=== PATIENT | female | born 1990 | race Caucasian/White ===

== ENCOUNTER 2016-07-31 13:18 | Emergency (ER) | payer BC ==
[~2016-07-31] VITALS: Ht 165.1 cm; Wt 54.4 kg
[~2016-07-31 13:18] MED LIST: LORA-741 PO; SERT-234 PO
[2016-07-31 13:23] VITALS: TEMP 36.8; Ht 165.1 cm; Wt 54.4 kg
[2016-07-31] MEDS ORDERED: SODIUM CHLORIDE 0.9% 1000ML 1,000 ML IV STA (14:10)
[2016-07-31] MEDS ORDERED: ONDANSETRON INJ 2 MG/ML 2 ML VIAL IV STA (14:10)
[2016-07-31] MEDS ORDERED: KETOROLAC TROMETHAMINE 30 MG/ML VIAL IV STA (14:10)
[2016-07-31 14:53] LABS: BASO % 0.1 %; BASO ABS # 0.01 K/uL (0-0.2); COMPLETE YES; HEMATOCRIT 35.3 % (37-47); IG% 0.2 %; LYMPH % 9.5 %; LYMPH ABS # 1.14 K/uL (1.2-3.4); MEAN CELL VOLUME 87.6 fL (80-100); MEAN CORPUSCULAR HEMOGLOBIN 32.3 pg (25-34); MEAN CORPUSCULAR HGB CONC 36.8 g/dl (32-36); MEAN PLATELET VOLUME 8.8 fL (7.4-10.4); MONO % 4.8 %; NEUT % 85.4 %; PLATELET COUNT 235 K/uL (130-400); RED BLOOD COUNT 4.03 M/uL (4.2-5.4); WHITE BLOOD COUNT 12.02 K/uL (4.8-10.8)
[2016-07-31 15:19] LABS: BUN/CREATININE RATIO 19.6 (10-20); CALCIUM 8.9 mg/dl (8.5-10.1); CREATININE 0.72 mg/dl (0.60-1.20); POTASSIUM 3.7 mmol/L (3.5-5.1)
[2016-07-31] MEDS ORDERED: SODIUM CHLORIDE 0.9% 500ML 500 ML IV STA (15:48)
[2016-07-31] MEDS ORDERED: PROM25TA9 PO (16:10)
[2016-07-31 18:00] VITALS: BP 99/67; PULSE 78; O2SAT 97
--- NOTE | 2016-07-31 19:35 | EMERGENCY ROOM VISIT NOTE ---
History First contact with patient: 14:02 Chief Complaint: NAUSEA Stated Complaint: NAUSEA, VOMITING, ABD. CRAMPS, COLD/SHAKY Nursing Triage Summary: n/v/d for past few hours abd cramping 3 emesis and 4 loose stools today History of Present Illness The patient is a 26 year old female who presents to the Emergency Room with complaints of nausea, vomiting and watery diarrhea. The patient reports that her symptoms started around 10 AM this morning. She has been unable to drink any fluids because of nausea and vomiting. The patient reports that she is a yoker, and could've picked up something at the restaurant. He denies any preceding upper respiratory symptoms. She denies with her last menstruation approximately 4 weeks ago. She denies any urinary symptoms. She rates her overall discomfort a 4 out of 10. Review of Systems HEENT: Denies dizziness, visual problems, hearing loss, tinnitus. Denies difficulty swallowing or oral lesions. PULMONARY: Denies cough, shortness of breath, sputum production or hemoptysis. CARDIOVASCULAR: Denies chest pain, palpitations, dyspnea on exertion, orthopnea or peripheral edema. GASTROINTESTINAL: Denies diarrhea, constipation, nausea, vomiting, or abdominal pain. GENITOURINARY: Denies dysuria, frequency, urgency or nocturia. NEUROLOGIC: Denies history of epilepsy, CVA, TIA or chronic headaches. MUSCULOSKELETAL: Denies history of joint tenderness/swelling. SKIN: Denies rashes or lesions. PSYCHIATRIC: History of depression. ENDOCRINE: Denies history of diabetes or thyroid disorders. Past Medical/Surgical History Medical Problems: (1) Bronchitis (2) Kidney stones Surgical Problems: (1) [place] teeth removed Family History Endometriosis FH: diabetes mellitus FH: lung disease FHx: cancer Hypertension Kidney stones Social History Smoking Status: Current Every Day Smoker Alcohol Use: occasionally Housing Status: lives alone Occupation Status: employed Current/Historical Medications Scheduled Sertraline (Zoloft), 100 MG PO HS Scheduled PRN Lorazepam (Ativan), 0.5 MG PO TID PRN for panic attacks Promethazine Hcl (Phenergan), 25 MG PO Q4H PRN for Nausea Allergies Coded Allergies: NO KNOWN DRUG ALLERGIES (Verified Allergy, Unknown, none, 07/31/16) Physical Exam Vital Signs Date Time Temp Pulse Resp B/P Pulse Ox O2 Delivery O2 Flow Rate FiO2 07/31/16 18:00 78 99/67 97 07/31/16 15:20 75 97/65 99 07/31/16 13:23 36.8 94 20 129/87 97 Room Air Physical Exam CONSTITUTIONAL: Healthy and well nourished. Alert and oriented X 3 with positive affect. Patient does not appear acutely or toxic. She does appear nauseated. HEENT: Normocephalic, atraumatic. Pupils equal, round and reactive. Ears and nares are clear. No scleral icterus or conjunctival injection/pallor. OROPHARYNX: Mucous membranes are dry. No tonsillar hypertrophy or exudates. NECK: Full active range of motion without discomfort. No nuchal rigidity. LYMPHATICS: No cervical chain adenopathy. RESPIRATORY: Clear to auscultation bilaterally with no wheezing, crackles, rhonchi or stridor. CARDIOVASCULAR: Regular rate and rhythm with no murmurs, rubs or gallops. GASTROINTESTINAL: Bowel sounds present in all quadrants. Patient has minimal and nonfocal tenderness of the abdomen. No obvious hepatosplenomegaly. Negative CVA tenderness. Negative McBurney's point tenderness. MUSCULOSKELETAL: Full range of motion of all joints without discomfort. INTEGUMENTARY: No rash or other significant dermatologic conditions noted. HEMATOLOGIC: No ecchymosis or petechiae noted. NEUROLOGIC: No focal neurologic deficits noted. Medical Decision & Procedures Laboratory Results 07/31/16 14:26 Red Blood Count 4.03, Mean Corpuscular Volume 87.6, Mean Corpuscular Hemoglobin 32.3, Mean Corpuscular Hemoglobin Concent 36.8, Mean Platelet Volume 8.8, Neutrophils (%) (Auto) 85.4, Lymphocytes (%) (Auto) 9.5, Monocytes (%) (Auto) 4.8, Eosinophils (%) (Auto) 0.0, Basophils (%) (Auto) 0.1, Neutrophils # (Auto) 10.27, Lymphocytes # (Auto) 1.14, Monocytes # (Auto) 0.58, Eosinophils # (Auto) 0.00, Basophils # (Auto) 0.01 07/31/16 14:26 Test 07/31/16 14:20 07/31/16 14:26 Urine Test NEG (NEG) White Blood Count 12.02 K/uL (4.8-10.8) Red Blood Count 4.03 M/uL (4.2-5.4) Hemoglobin 13.0 g/dL (12.0-16.0) Hematocrit 35.3 % (37-47) Mean Corpuscular Volume 87.6 fL (80-100) Mean Corpuscular Hemoglobin 32.3 pg (25-34) Mean Corpuscular Hemoglobin Concent 36.8 g/dl (32-36) Platelet Count 235 K/uL (130-400) Mean Platelet Volume 8.8 fL (7.4-10.4) Neutrophils (%) (Auto) 85.4 % Lymphocytes (%) (Auto) 9.5 % Monocytes (%) (Auto) 4.8 % Eosinophils (%) (Auto) 0.0 % Basophils (%) (Auto) 0.1 % Neutrophils # (Auto) 10.27 K/uL (1.4-6.5) Lymphocytes # (Auto) 1.14 K/uL (1.2-3.4) Monocytes # (Auto) 0.58 K/uL (0.11-0.59) Eosinophils # (Auto) 0.00 K/uL (0-0.5) Basophils # (Auto) 0.01 K/uL (0-0.2) RDW Standard Deviation 38.3 fL (36.4-46.3) RDW Coefficient of Variation 11.9 % (11.5-14.5) Immature Granulocyte % (Auto) 0.2 % Immature Granulocyte # (Auto) 0.02 K/uL (0.00-0.02) Anion Gap 9.0 mmol/L (3-11) Est Creatinine Clear Calc Drug Dose 103.5 ml/min Estimated GFR () 135.9 Estimated GFR (Non- 117.2 BUN/Creatinine Ratio 19.6 (10-20) Calcium Level 8.9 mg/dl (8.5-10.1) Total Bilirubin 0.8 mg/dl (0.2-1) Direct Bilirubin 0.2 mg/dl (0-0.2) Aspartate Amino Transf (AST/SGOT) 18 U/L (15-37) Alanine Aminotransferase (ALT/SGPT) 19 U/L (12-78) Alkaline Phosphatase 46 U/L (45-117) Total Protein 7.4 gm/dl (6.4-8.2) Albumin 4.4 gm/dl (3.4-5.0) The above labs were reviewed. The patient has a mild leukocytosis and left shift without bandemia. Urine is negative. Remaining electrolytes, partial renal profile, LFTs are normal. Medications Administered Medications (Trade) Dose Ordered Sig/Krystyna Route Start Time Stop Time Status Last Admin Dose Admin Ketorolac Tromethamine 30 mg 30 mg NOW STAT IV 07/31/16 14:10 07/31/16 14:12 DC 07/31/16 14:25 30 MG Sodium Chloride (Nss 1000ml) 1,000 ml @ 999 mls/hr Q1H1M STAT IV 07/31/16 14:10 07/31/16 15:10 DC 07/31/16 14:25 999 MLS/HR Ondansetron HCl 4 mg 4 mg NOW STAT IV 07/31/16 14:10 07/31/16 14:12 DC 07/31/16 14:25 4 MG Sodium Chloride (Nss 500ml) 500 ml @ 999 mls/hr Q31M STAT IV 07/31/16 15:48 07/31/16 16:18 DC 07/31/16 16:25 999 MLS/HR Procedure 1. IV hydration: The patient received a total of 1.5 L normal saline bolus 2. IV medications: The patient was administered Toradol 30 mg and Zofran 4 mg IVP ED Course Patient history and physical exam were performed. Nurse's notes were reviewed. Vital signs were reviewed and were normal. IV access was established and labs were drawn. The patient was hydrated with normal saline, and received IV medications as discussed in the previous Procedure section. Labs were reviewed and were grossly normal. The patient reported feeling better with the above treatment, and requested discharge home. She was tolerating oral fluids prior to discharge. The patient was provided a prescription for Phenergan to prevent nausea. She was given instructions on a clear liquid diet. Tylenol as needed for pain. Follow-up with family doctor as needed for any persistent symptoms. Return to the emergency department for inability to remain hydrated or intractable vomiting. The patient was happy with plan of care, and voiced understanding of all discharge instructions. Medical Decision She presents with symptoms of nausea, vomiting and diarrhea that is consistent with a viral gastroenteritis. Her lab work does not suggest pancreatitis, cholecystitis, hepatitis, UTI or . Physical exam does not suggest appendicitis, peritonitis, pyelonephritis or acute abdomen. Impression Primary Impression: Gastroenteritis Departure Information Prescriptions Promethazine Hcl (Phenergan) 25 Mg Tab 25 MG PO Q4H Y for Nausea, #20 TAB Prov: Kade Fenton PA 07/31/16 Referrals Monique Stephens (PCP) Patient Instructions A Signature Page, My [facility]
== END 2016-07-31 18:02 | disposition home or self-care (01) ==
LOC: C.EDB 13:22 → C.EDC 18:02
DX: K52.9 Noninfective gastroenteritis and colitis, unspecified (principal); Z87.442 Personal history of urinary calculi; Z83.3 Family history of diabetes mellitus; Z82.49 Family history of ischemic heart disease and other diseases of the circulatory system; F17.210 Nicotine dependence, cigarettes, uncomplicated; Z79.899 Other long term (current) drug therapy

== ENCOUNTER 2019-09-05 23:18 | Inpatient (IN) ==
[2019-09-06 00:09] LABS: Basophils # (auto) 0.02 K/uL (0-0.2); Basophils % (auto) 0.3 %; Eosinophils # (auto) 0.09 K/uL (0-0.5); Eosinophils % (auto) 1.5 %; Hematocrit (blood only) 38.8 % (37-47); Hemoglobin 13.8 g/dL (12.0-16.0); Immature Granulocytes # (auto) 0.01 K/uL (0.00-0.02); Immature Granulocytes % (auto) 0.2 %; Lymphocytes # (auto) 2.33 K/uL (1.2-3.4); Lymphocytes % (auto) 38.9 %; Mean Corpuscular Hemoglobin 32.2 pg (25-34); Mean Corpuscular Hgb Conc 35.6 g/dL (32-36); Mean Corpuscular Volume 90.4 fL (80-100); Mean Platelet Volume 9.8 fL (7.4-10.4); Monocytes # (auto) 0.42 K/uL (0.11-0.59); Neutrophils # (auto) 3.12 K/uL (1.4-6.5); Neutrophils % (auto) 52.1 %; Platelet Count 236 K/uL (130-400); RDW Coefficient of Variation 12.2 % (11.5-14.5); RDW Standard Deviation 39.9 fL (36.4-46.3); Red Blood Count 4.29 M/uL (4.2-5.4); White Blood Count 5.99 K/uL (4.8-10.8)
[2019-09-06 00:19] LABS: Alanine Aminotransferase 15 U/L (12-78); Albumin Level 4.6 gm/dl (3.4-5.0); BUN Creatinine Ratio 13.8 (10-20); Blood Urea Nitrogen 11 mg/dl (7-18); Calcium 9.3 mg/dl (8.5-10.1); Carbon Dioxide 25 mmol/L (21-32); Chloride 109 mmol/L (98-107); Est GFR (African American) 117.1; Glucose 92 mg/dl (70-99); Lipase 111 U/L (73-393); Potassium 3.4 mmol/L (3.5-5.1); Sodium 140 mmol/L (136-145)
[2019-09-06 00:21] LABS: D Dimer < 190 ug/L FEU (0-500); INR 1.1 (0.9-1.1); Partial Thromboplastin Time 26.2 Seconds (21.0-31.0); Prothrombin Time 10.8 Seconds (9.0-12.0)
[2019-09-06 00:24] LABS: Albumin Globulin Ratio 1.3 (0.9-2); Alkaline Phosphatase 55 U/L (45-117); Aspartate Aminotransferase 13 U/L (15-37); Bilirubin,Total 1.3 mg/dl (0.2-1); Globulin 3.4 gm/dl (2.5-4.0); Troponin I < 0.015 ng/ml (0-0.045)
--- NOTE | 2019-09-06 02:08 | History & Physical Report ---
Date of Service September 06, 2019 Assessment & Plan (1) Substernal chest pain: The patient will be admitted to telemetry for serial cardiac enzymes, serial EKG's, cardiac rhythm monitoring and a 2-D echocardiogram with Dopplers. Consult cardiology Present on Admission?: Yes (2) Abnormal EKG: Initial EKG on 08/16/[address]-T changes in leads II, III and aVF. EKG today shows deepening T wave inversions in lead III, persistent ST-T changes and aVF, and improved lead II. Patient reports never having an echocardiogram or stress test. Family history is primarily significant for her mother having peripheral arterial disease. Present on Admission?: Yes (3) Tobacco use disorder: Patient smokes tobacco and marijuana products. Cessation counseling. Present on Admission?: Yes (4) Hypokalemia: Give potassium chloride 40 mEq p.o. now. Repeat labs in a.m. Present on Admission?: Yes History of Present Illness Chief Complaint: The patient presents to the emergency department with complaint of persistent substernal chest discomfort for which she was initially seen in emergency department on 08/17/2019. Primary Care Provider: NO PCP The patient is a 29-year-old female with past medical history of pneumonia, gastroenteritis, kidney stones, bronchitis and regular use of tobacco and marijuana products. She presents to the emergency department with symptoms that she initially was seen for on 08/17/2019. She continues to smoke tobacco on a daily basis and marijuana uses regularly but less frequent. She has not had any recent travels or sick exposures, but does plan on traveling in 4 days to [place]. She reports that she did have some intermittent issues with sore throat prior to these symptoms of chest discomfort beginning. Allergies Allergy/AdvReac Type Severity Reaction Status Date / Time No Known Drug Allergies Allergy Unknown none Verified 09/05/19 23:41 Home Medications Home Medications Medication Instructions Recorded Confirmed Type No Known Home Medications 08/16/19 09/05/19 History Past Med/Surg History Medical History No chronic diseases present Surgical History No significant past surgical history Social History Feels Safe at Home: Yes Smoking Status: Current every day smoker Review of Systems Review of Systems: The patient denies palpitations, lower extremity swelling, sore throat, fevers, chills, sweats, weight change, fatigue, nausea, vomiting, diarrhea , constipation, abdominal pain, pelvic pain, blood in urine or stool, dysuria, urinary frequency or urgency, lightheadedness, dizziness, headache, memory loss, loss of consciousness, rash, abnormal bruising or bleeding, imbalance, focal or generalized weakness, numbness or tingling in arms or legs, generalized arthralgias or myalgias, back or neck pain, or night sweats. The review of systems is otherwise negative other than for that already noted above, and at least 10 systems have been reviewed. Physical Exam Physical Exam: The patient is awake, alert and oriented 3, well developed and well nourished, normocephalic and atraumatic, lying in bed and in no acute distress. HEENT--PERRL, EOMI, mucous membranes and oropharynx dry. Neck--supple. No JVD. No bruits. Thyroid normal, trachea midline, no adenopathy. Heart--normal S1 and S2. No murmurs, rubs or gallops. Lungs--clear bilaterally, no respiratory distress, no accessory muscle use. Abdomen--normal bowel sounds and soft. Nontender. Nondistended, no hernias or masses, no organomegaly. Extremities--no cyanosis or clubbing. No edema. Dermatologic--normal skin turgor, normal color, no abnormal lymph nodes, no rash. Neurologic--cranial nerves II through XII grossly intact. Rheumatologic--normal range of motion. Psychiatric--normal affect. Results & Data Vital Signs (Past 12 Hours) Vital Signs Temp Pulse Pulse Resp BP BP Pulse Ox 09/06/19 00:48 68 16 114/66 99 09/05/19 23:30 100 09/05/19 23:20 98.6 F 72 19 138/93 100 Laboratory Results Laboratory Results WBC 5.99 K/uL (4.8-10.8) 09/05/19 23:27 RBC 4.29 M/uL (4.2-5.4) 09/05/19 23:27 Hgb 13.8 g/dL (12.0-16.0) 09/05/19 23:27 Hct 38.8 % (37-47) 09/05/19: MCV 90.4 fL (80-100) 09/05/19: MCH 32.2 pg (25-34) 09/05/19 MCHC 35.6 g/dL (32-36) 09/05/19 RDW Std Deviation 39.9 fL (36.4-46.3) 09/05/19 RDW Coeff of Jacqueline 12.2 % (11.5-14.5) 09/05/19 Plt Count 236 K/uL (130-400) 09/05/19 MPV 9.8 fL (7.4-10.4) 09/05/19 Immature Gran % (Auto) 0.2 % 09/05/19 Neut % (Auto) 52.1 % 09/05/19: Lymph % (Auto) 38.9 % 09/05/19: [place] % (Auto) 7.0 % 09/05/19: Eos % (Auto) 1.5 % 09/05/19 Baso % (Auto) 0.3 % 09/05/19 Immature Gran # (Auto) 0.01 K/uL (0.00-0.02) 09/05/19 Neut # (Auto) 3.12 K/uL (1.4-6.5) 09/05/19 Lymph # (Auto) 2.33 K/uL (1.2-3.4) 09/05/19 [place] # (Auto) 0.42 K/uL (0.11-0.59) 09/05/19 Eos # (Auto) 0.09 K/uL (0-0.5) 09/05/19 Baso # (Auto) 0.02 K/uL (0-0.2) 09/05/19 PT 10.8 Seconds (9.0-12.0) 09/05/19: INR 1.1 (0.9-1.1) 09/05/19 APTT 26.2 Seconds (21.0-31.0) 09/05/19 PTT Ratio 1.0 09/05/19 23: D-Dimer < 190 ug/L FEU (0-500) 09/05/19 23: Sodium 140 mmol/L (136-145) 09/05/19 23: Potassium 3.4 mmol/L (3.5-5.1) L 09/05/19 23: Chloride 109 mmol/L (98-107) H 09/05/19 23: Carbon Dioxide 25 mmol/L (21-32) 09/05/19 23: Anion Gap 6.0 (3-11) 09/05/19 23: BUN 11 mg/dl (7-18) 09/05/19: Creatinine 0.80 mg/dl (0.6-1.2) 09/05/19: Est Cr Clr Drug Dosing 95.0 ml/min 09/05/19 23: Est GFR ( Amer) 117.1 09/05/19: Est GFR (Non-Af Amer) 101.0 09/05/19 23: BUN/Creatinine Ratio 13.8 (10-20) 09/05/19 23: Glucose 92 mg/dl (70-99) 09/05/19: Calcium 9.3 mg/dl (8.5-10.1) 09/05/19: Total Bilirubin 1.3 mg/dl (0.2-1) H 09/05/19 23: AST 13 U/L (15-37) L 09/05/19: ALT 15 U/L (12-78) 09/05/19 23: Alkaline Phosphatase 55 U/L (45-117) 09/05/19 23: Troponin I < 0.015 ng/ml (0-0.045) 09/05/19: Total Protein 8.0 gm/dl (6.4-8.2) 09/05/19: Albumin 4.6 gm/dl (3.4-5.0) 09/05/19: Globulin 3.4 gm/dl (2.5-4.0) 09/05/19: Albumin/Globulin Ratio 1.3 (0.9-2) 02/08/20 23:27 Lipase 111 U/L (73-393) 09/05/19 23:27 Code Status & VTE Plan Code Status Full code VTE Prophylaxis Plan VTE Prophylaxis will be ordered: Yes PG Care Time/CCT Total # of Minutes Spent Total Time Spent with Patient: Total time spent is greater than 50% in coordination of care (as documented) at patient's floor/unit and/or counseling patient: Coding Level of Care Code 38738 Initial Inpt Care Lvl 3 Diagnoses Substernal chest pain R07.2 Abnormal EKG R94.31 Tobacco use disorder F17.200 Hypokalemia E87.6
[2019-09-06] MEDS ORDERED: NITROGLYCERIN SL 0.4 MG/TAB TAB SL PRN (02:28)
[2019-09-06] MEDS ORDERED: ALUMINUM/MAGNESIUM SUSP 30 ML UDC PO PRN (02:28)
[2019-09-06] MEDS ORDERED: ONDANSETRON INJ 2 MG/ML 2 ML VIAL IV PRN (02:28)
[2019-09-06] MEDS ORDERED: ACETAMINOPHEN 325 MG TAB PO PRN (02:28)
[2019-09-06] MEDS ORDERED: MAGNESIUM HYDROXIDE SUSP 30 ML UDC PO PRN (02:28)
[2019-09-06] MEDS ORDERED: INFLUENZA VIRUS QUAD VACCINE 0.5 ML SYR IM ONE (02:49)
[2019-09-06] MEDS ORDERED: INFLUENZA ADMINISTRATION CHARGE ONE (02:49)
[2019-09-06 03:32] LABS: Basophils # (auto) 0.02 K/uL (0-0.2); Basophils % (auto) 0.3 %; Eosinophils # (auto) 0.05 K/uL (0-0.5); Eosinophils % (auto) 0.8 %; Hematocrit (blood only) 35.6 % (37-47); Hemoglobin 12.9 g/dL (12.0-16.0); Immature Granulocytes # (auto) 0.01 K/uL (0.00-0.02); Immature Granulocytes % (auto) 0.2 %; Lymphocytes # (auto) 1.71 K/uL (1.2-3.4); Lymphocytes % (auto) 28.4 %; Mean Corpuscular Hgb Conc 36.2 g/dL (32-36); Mean Corpuscular Volume 88.3 fL (80-100); Monocytes % (auto) 6.6 %; Neutrophils # (auto) 3.83 K/uL (1.4-6.5); Neutrophils % (auto) 63.7 %; Platelet Count 233 K/uL (130-400); RDW Standard Deviation 38.9 fL (36.4-46.3); Red Blood Count 4.03 M/uL (4.2-5.4); White Blood Count 6.02 K/uL (4.8-10.8)
[2019-09-06 03:50] LABS: Albumin Level 4.3 gm/dl (3.4-5.0); BUN Creatinine Ratio 14.9 (10-20); Blood Urea Nitrogen 11 mg/dl (7-18); Calcium 8.9 mg/dl (8.5-10.1); Carbon Dioxide 24 mmol/L (21-32); Chloride 108 mmol/L (98-107); Creatinine Clr Calc Pharmacy 94.8 ml/min; Est GFR (African American) 135.3; Est GFR (Non-African American) 116.7; Glucose 80 mg/dl (70-99); Potassium 3.7 mmol/L (3.5-5.1); Sodium 139 mmol/L (136-145)
[2019-09-06 03:55] LABS: Phosphorus 3.3 mg/dl (2.5-4.9); Troponin I < 0.015 ng/ml (0-0.045)
--- NOTE | 2019-09-06 05:59 | Emergency Department Note ---
Entered by Saima Woody acting as a scribe for Luz Flores DO History of Present Illness General Chief complaint: Chest Pain Stated complaint: CHEST PAIN,FEELS LIKE SOMETHING IS STUCK IN THROAT Time Seen by Provider: 09/05/19 23:25 Source: patient History of Present Illness Onset (ago): week(s) 3 Location: chest Radiation: neck Severity: similar to prior episodes Pain Consistency: + constant Maximum Pain Intensity: 6 Current Pain Intensity: 6 Quality: + other (pressure) Relieved By: + none Exacerbated By: + other (deep breaths) Associated symptoms: + denies other symptoms (denies issues swallowing or sore throat), + chest pain and + other (esophageal discomfort, heaviness in left leg) Treatments prior to arrival: none The patient is a 29 year old female who presents to the Emergency Room with comp laints of chest pain that have been ongoing for the past 3 weeks. The patient has felt as if something was stuck in her throat for a few weeks. She denies issues swallowing and throat pain. She complains of a consistent pressure in the center of her chest as well, which has radiated up her neck. She states that her chest pain is exacerbated with deep breaths. She complains of heaviness in her left leg. The patient notes that she was seen in the ER at August 16 with the same symptoms. She states that her symptoms have been constant since her last visit. The patient confirms that she is a smoker, and her mom has been an on and off smoker. She also reports marijuana use. The patient denies abdominal pain and chance of . The patient notes that she has not had a cardiac workup or a stress test done before. Home Medications Home Medications Medication Instructions Recorded Confirmed Type No Known Home Medications 08/16/19 09/05/19 History Allergies Allergy/AdvReac Type Severity Reaction Status Date / Time No Known Drug Allergies Allergy Unknown none Verified 09/05/19 23:41 Past Med/Surg History Medical History (Updated 09/06/19 @ 02:14 by Isai Underwood MD) Abnormal EKG No chronic diseases present Tobacco use disorder Surgical History No significant past surgical history Social History Preferred Language: [employer] Instructor Required: No Beliefs That Will Affect Care: None Current Living Situation: Other Feels Safe at Home: Yes Smoking Status: Never smoker Hx Alcohol Use: No Hx Substance Use: Yes substance use type: marijuana Last Used Substance: Hours (ago) Review of Systems See HPI for pertinent positives & negatives. and A total of 10 systems reviewed and were otherwise negative Physical Exam Vital Signs Vital Signs - 24 hr 09/05/19 23:20 09/05/19 23:30 09/06/19 00:48 Temperature 37 C Temperature Source Oral Pulse Rate 72 Pulse Rate [Right] 68 Pulse Rhythm [Right] Regular Pulse Strength [Right] Normal Respiratory Rate 19 16 Respiratory Effort / Characteristics Non-Labored Non-Labored Spontaneous Respiratory Depth Normal Normal Respiratory Pattern Regular Blood Pressure 138/93 Blood Pressure [Right Arm] 114/66 Blood Pressure Mean 108 Blood Pressure Mean [Right Arm] 82 Blood Pressure Position Sitting Blood Pressure Position [Right Arm] Sitting Pulse Oximetry 100 100 99 Oxygen Delivery Method Room Air Room Air Room Air Sepsis Recent Fever Within 48 Hours No Sepsis Action Taken by Nursing No Action Required HEENT: Head - normocephalic and atraumatic Pupils are equal, round, and reactive to light. Extraocular eye muscles are intact, and sclera are anicteric. Nose - moist nasal mucosa without discharge. Mouth - moist buccal mucosa. Oropharynx is nonerythematous and there is no tonsillar exudate or edema noted. Neck: Supple; no cervical lymphadenopathy or thyromegaly Heart: Regular rate and rhythm. There is a normal S1 and S2 with no murmurs, clicks, or gallops appreciated. Lungs: Clear to auscultation bilaterally with no wheezes, rales, or rhonchi. Abdomen: Soft, completely nontender, nondistended, with good bowel sounds. There are no palpable pulsatile masses or hepatosplenomegaly. There is no guarding, rigidity, or rebound noted. Extremities: No evidence of cyanosis, clubbing, or edema. There are easily palpable peripheral pulses. Skin: warm and dry with good turgor and no rashes. Neuro: normal muscle strength in all extremities. Normal lower extremity reflexes. Normal sensation in both legs bilaterally. Course Course 234: Past medical records reviewed. The patient was evaluated in room A11B. A complete history and physical exam was performed. The patient was placed on the monitor worker and pulse oximeter. A twelve-lead EKG was obtained. An IV lock was initiated and labs were drawn as above. 0003: I rechecked on the patient and questioned her further on the heaviness in her leg, as well as her medical history. She further described her left leg heaviness, but denies tripping over her feet. Muscle strength and sensation are equal bilaterally in the lower extremities. 0115: I rechecked on the patient and discussed the possibility of staying in the hospital for further evaluation. The patient understands and was agreeable to this. 0130: I spoke to Dr. Underwood, [facility] hospitalist, who agreed to take over car e of the patient. The patient is agreeable to this plan and understands the treatment course. The patient will be further evaluated. Administered Medications Acetaminophen (Tylenol) 650 mg PO Q4H PRN PRN Reason: Pain or Fever Stop: 10/06/19 02:27 Last Admin: 09/06/19 02:35 Dose: 650 mg Documented by: [id number] Medical Decision Making Differential Diagnosis Differential diagnosis includes: cardiac ischemia, PE, pericarditis, myocarditis, among others were considered. Medical Records Attestation: I reviewed the patient's medical records. Home Medications Current Medication List: was personally reviewed by me Laboratory Data Attestation: I reviewed the patient's lab results. Result diagrams: 09/06/19 03:07 09/06/19 03:07 Lab Results 09/05/19 09/05/19 09/05/19 Range/Units 23:27 23:27 23:27 WBC 5.99 (4.8-10.8) K/uL RBC 4.29 (4.2-5.4) M/uL Hgb 13.8 (12.0-16.0) g/dL Hct 38.8 (37-47) % MCV 90.4 (80-100) fL MCH 32.2 (25-34) pg MCHC 35.6 (32-36) g/dL RDW Std Deviation 39.9 (36.4-46.3) fL RDW Coeff of Jacqueline 12.2 (11.5-14.5) % Plt Count 236 (130-400) K/uL MPV 9.8 (7.4-10.4) fL Immature Gran % (Auto) 0.2 % Neut % (Auto) 52.1 % Lymph % (Auto) 38.9 % [place] % (Auto) 7.0 % Eos % (Auto) 1.5 % Baso % (Auto) 0.3 % Immature Gran # (Auto) 0.01 (0.00-0.02) K/uL Neut # (Auto) 3.12 (1.4-6.5) K/uL Lymph # (Auto) 2.33 (1.2-3.4) K/uL [place] # (Auto) 0.42 (0.11-0.59) K/uL Eos # (Auto) 0.09 (0-0.5) K/uL Baso # (Auto) 0.02 (0-0.2) K/uL PT 10.8 (9.0-12.0) Seconds INR 1.1 (0.9-1.1) APTT 26.2 (21.0-31.0) Seconds PTT Ratio 1.0 D-Dimer < 190 (0-500) ug/L FEU Sodium 140 (136-145) mmol/L Potassium 3.4 L (3.5-5.1) mmol/L Chloride 109 H (98-107) mmol/L Carbon Dioxide 25 (21-32) mmol/L Anion Gap 6.0 (3-11) BUN 11 (7-18) mg/dl Creatinine 0.80 (0.6-1.2) mg/dl Est Cr Clr Drug Dosing 95.0 ml/min Est GFR ( Amer) 117.1 Est GFR (Non-Af Amer) 101.0 BUN/Creatinine Ratio 13.8 (10-20) Glucose 92 (70-99) mg/dl Calcium 9.3 (8.5-10.1) mg/dl Total Bilirubin 1.3 H (0.2-1) mg/dl AST 13 L (15-37) U/L ALT 15 (12-78) U/L Alkaline Phosphatase 55 (45-117) U/L Troponin I < 0.015 (0-0.045) ng/ml Total Protein 8.0 (6.4-8.2) gm/dl Albumin 4.6 (3.4-5.0) gm/dl Globulin 3.4 (2.5-4.0) gm/dl Albumin/Globulin Ratio 1.3 (0.9-2) Lipase 111 (73-393) U/L Imaging Data Attestation: I personally reviewed and interpreted this imaging study as follows: My Impression: 1V CHEST X-RAY read by me Narrow mediastinum. No cardiomegaly. No pulmonary findings. ECG Data Attestation: I personally reviewed and interpreted this ECG as follows: Indication: + chest pain Rate (beats per minute): 67 Rhythm: + normal sinus ECG ST segments: + T-wave inversions (in leads 3 and AVF) Comparison ECG Date: from (08/16/19) Change: no significant change Blood Pressure Blood Pressure Findings: Normal blood pressure Blood Pressure Disposition: did not require urgent referral MDM Narrative This is a 29-year-old female patient who presents to the emergency department with a substernal chest pain and pressure. The patient has some noted T wave inversion in the inferior leads. This is unchanged from an EKG from last month but is new in comparison to an EKG from 2016. The patient is only 29 years old and has very little cardiac risk factors but this chest discomfort has p ersisted. There are no other signs of ischemia and she has a normal-appearing chest x-ray. Troponin is negative. Continuous Cardiac Monitoring: An order was placed for continuous cardiac monitoring. The monitor shows a rate of 67 with normal sinus rhythm. I have discussed the case with the [facility] Hospitalist and they will evaluate for further management. Impression & Plan Substernal chest pain Discharge Plan Visit Data *Final* Discharge Date/Time: 09/06/19 02:14 Chief Complaint: Chest Pain Stated Complaint: CHEST PAIN,FEELS LIKE SOMETHING IS STUCK IN THROAT ED Provider: Luz Flores Discharge Problem: Substernal chest pain Patient Disposition: Admitted As Inpatient Discharge Instructions Interventions: ED Discharge Assessment Last Done: 09/06/19 02:14 The scribe's documentation has been prepared under my direction and personally reviewed by me in its entirety. I confirm that the note above accurately reflects all work, treatment, procedures, and medical decision making performed by me.
--- NOTE | 2019-09-06 07:42 | XRay Report ---
XR chest 1V portable CLINICAL HISTORY: Chest Pain COMPARISON STUDY: Chest CT January 04, 2016. Chest radiograph August 16, 2018. FINDINGS: Lung volumes are normal. Lungs are clear. There is no pneumothorax or pleural effusion. Car diac size is normal. Mediastinal contours are normal. There is no evidence for pulmonary edema. IMPRESSION: No acute cardiopulmonary findings. ACT 112: Negative or not required by law. Electronically signed by: Isaias Roger M.D. 09/06/2019 7:41 AM
--- NOTE | 2019-09-06 08:04 | Electrocardiogram Report ---
Test Reason : Blood Pressure : / mmHG Vent. Rate : 067 BPM Atrial Rate : 067 BPM P-R Int : 140 ms QRS Dur : 080 ms QT Int : 420 ms P-R-T Axes : 070 087 -17 degrees QTc Int : 443 ms Normal sinus rhythm Low voltage QRS Nonspecific T wave abnormality Inferior leads Abnormal ECG When compared with ECG of 16-AUG-2019 03:58, No significant change was found Confirmed by Ike Rankin ([id number]) on 09/06/2019 8:04:37 AM Referred By: REFERRED SELF Confirmed By:Ike Rankin
[2019-09-06] MEDS ORDERED: PROMETHAZINE HCL 12.5 MG in SODIUM CHLORIDE 0.9% 50 ML IV STA (08:35)
[2019-09-06] MEDS: ASPIRIN 81 MG ECTAB PO SCH ×2 (08:55→09:13)
--- NOTE | 2019-09-06 10:47 | XCELERA ---
[id number] \\[id number]_[id number]___[id number]
--- NOTE | 2019-09-06 11:47 | Cardiology Consultation ---
Date of Consultation September 06, 2019 Assessment & Plan (1) Atypical chest pain: (2) Abnormal EKG: (3) Hypokalemia: (4) Tobacco use disorder: (5) Anxiety disorder: 29-year-old woman with at least 3 weeks of waxing and waning but continually present chest discomfort with a pleuritic component. She does have a mildly abnormal ECG (inferior T wave inversions), but this has been stable over time with no dynamic ST changes or changes in T wave morphology. Cardiac enzymes were negative x3 during current admission as well as at the time of her ER presentation several weeks ago. Given the low epidemiologic probability of coronary artery disease (although she is a smoker) and the very atypical nature of her symptoms, feel that her chest symptoms are noncardiac and the yield from stress testing would be quite low (probability of false positive exceeds likelihood of clarifying the nature of her current symptoms). She has some element of costochondritis, but this is a different character pain. Given her prolonged expiratory phase on examination, suspect that she has some underlying asthma or COPD type phenomenon exacerbated by her chronic tobacco smoking. Recommended tobacco abstinence and using ibuprofen 400 mg twice daily with meals for 4 to 5 days to treat any inflammatory component (due to increased work of breathing with potential underlying obstructive lung disease). If she does not feel better over the next few days, she will call and further evaluation will be pursued (depending on symptoms, pulmonary function test, less likely but possibly cardiac stress testing). She plans to travel by plane to [place] on Saturday, she will monitor her symptoms and should be okay to travel if they resolve. As noted, if she does not feel better she will contact our office (given phone number for cardiology nursing) for further evaluation. Patient appropriate for discharge. Thank you for this consultation. History of Present Illness Reason for Consultation: Abnormal ECG/chest pain Requesting Physician: Isai Underwood MD Attending Physician: Luan Rios DO History of Present Illness 29-year-old generally healthy woman who is a regular smoker and has a prior history of pneumonia, no known cardiac history, admitted yesterday after several weeks of anterior chest discomfort. She denies any chest pressure pain prior to several weeks ago, sometime in mid July she developed a feeling of "something stuck in my throat" as well as a sense of anterior chest discomfort that felt like a pressure. At that time, she had associated symptoms of flushing and warmth along with dizziness and palpitations. She was seen in the emergency department on 08/17/2019 where a work-up was negative (normal troponin, d-dimer, chest x-ray, negative flu swab, minor T wave abnormality inferior leads on ECG). Her throat sensation and chest pressure symptoms persisted over the past several weeks, waxing and waning on a daily basis but never resolving completely. She notes increased discomfort when she takes a deep breath. She has had no further flushing, dizziness, or palpitations since her earlier ER visit, noting only the chest and throat symptoms. She denies any dyspnea. At baseline, she walks but does not exercise vigorously. She denies any association of her symptoms with activity. Her chest pain increased to 5/10 severity discomfort last evening, prompting another ER visit and admission for further evaluation. This morning, she notes 3/10 severity discomfort, no other symptoms. She is a daily cigarette smoker and a regular marijuana smoker, denies vaping. No other identified cardiac risk factors. Evaluation here included troponin negative x3, stable ECG showing sinus rhythm with minor nonspecific inferior T wave abnormalities (unchanged from 08/17/2019), normal chest x-ray, and unremarkable cardiac monitoring overnight. Allergies Allergy/AdvReac Type Severity Reaction Status Date / Time No Known Drug Allergies Allergy Unknown none Verified 09/05/19 23:41 Home Medications Home Medications Medication Instructions Recorded Confirmed Type No Known Home Medications 08/16/19 09/05/19 History ibuprofen 600 mg PO Q8H PRN #60 tab 09/06/19 Rx Patient History Medical History Abnormal EKG Bronchitis (Resolved) Chest wall contusion (Inactive) Chest wall pain (Inactive) Gastroenteritis (Inactive) Kidney stones (Resolved) No chronic diseases present Pneumonia (Inactive) Tobacco use disorder Surgical History H/O hand surgery Right thumb ligament repair. [place] teeth removed (Resolved) Family History Hypertension Mother Social History Preferred Language: Maltese Communication Ability: Effective Welt Sole Layer Required: No Beliefs That Will Affect Care: None marital status: Single Current Living Situation: Other Feels Safe at Home: Yes Smoking Status: Current every day smoker Tobacco Type: cigarettes ; Hx Alcohol Use: No Hx Substance Use: Yes substance use type: marijuana Last Used Substance: Hours (ago) Review of Systems Constitutional: + chills; no fever, no fatigue, no weight loss and no weight gain Eyes: no problem reported Ear, Nose, Mouth, Throat: no problem reported Respiratory: no cough and no dyspnea Cardiovascular: as per Subjective / HPI Gastrointestinal: no abdominal pain and no change in stools Genitourinary: no problem reported Musculoskeletal: no myalgia Integumentary: no rash and no new lesions Neurologic: no falls and no syncope Psychiatric: no problem reported Hematologic / Lymphatic: no easy bleeding and no easy bruising Physical Exam Physical Exam: Normal habitus young adult white female in no distress. Skin: no ecchymoses or generalized lesions. HEENT: unremarkable. Neck: no JVD or carotid bruits. Lungs: Mildly prolonged expiratory phase on forced exhalation, otherwise unremarkable. No crackles, wheezes, or rhonchi. No accessory muscle use, intercostal retraction, or nasal flaring. Chest wall: Mild reproducible sharp discomfort both sides of lower sternal border (not the same as her presenting symptom). Cardiac: regular rhythm, no murmur, gallop, rub. Abdomen benign. Extremities: no edema, pulses brisk. Neurologic: normal affect, nonfocal. Results & Data Vital Signs (Past 12 Hours) Vital Signs Temp Pulse Pulse Resp BP BP Pulse Ox 09/06/19 10:38 97.9 F 84 19 96/61 L 98 09/06/19 08:00 56 L 09/06/19 07:33 97.9 F 75 18 111/71 98 09/06/19 02:20 98.1 F 73 18 122/93 95 09/06/19 02:11 73 16 106/71 96 09/06/19 00:48 68 16 114/66 99 09/05/19 23:30 100 Laboratory Results 09/05/19 09/06/19 09/06/19 23:27 03:07 10:29 Potassium 3.4 L Troponin I < 0.015 < 0.015 < 0.015 Diagnostic Findings Serial ECGs showed sinus rhythm with nonspecific T wave abnormality inferior leads (mildly inverted T waves in the face of upright QRS pattern). Compared with 08/17/2019 ECG, no significant change. Normal echocardiogram. Normal LV size and systolic function with no regional wall motion abnormalities. No significant valvular disease. Normal right heart findings. Unremarkable chest x-ray. PG Care Time/CCT Total # of Minutes Spent Total Time Spent with Patient: Total time spent is greater than 50% in coordination of care (as documented) at patient's floor/unit and/or counseling patient: Coding Level of Care Code 53127 Inpt Consult Level 4 Diagnoses Atypical chest pain R07.89 Abnormal EKG R94.31 Hypokalemia E87.6 Tobacco use disorder F17.200 Anxiety disorder F41.9
--- NOTE | 2019-09-06 14:00 | Discharge Summary ---
Date of Service September 06, 2019 Admission HPI Per Admitting Provider The patient is a 29-year-old female with past medical history of pneumonia, gastroenteritis, kidney stones, bronchitis and regular use of tobacco and marijuana products. She presents to the emergency department with symptoms that she initially was seen for on 08/17/2019. She continues to smoke tobacco on a daily basis and marijuana uses regularly but less frequent. She has not had any recent travels or sick exposures, but does plan on traveling in 4 days to [place]. She reports that she did have some intermittent issues with sore throat prior to these symptoms of chest discomfort beginning. Principal Diagnosis chest pain, likely costochondritis Discharge Exam Constitutional WD/WN, vitals as above Eyes PERRL, conjunctivae normal, anicteric sclerae ENMT external ear and nose normal, oropharynx normal Neck trachea midline, no thyromegaly Respiratory normal respiratory effort, lungs clear to auscultation Cardiovascular RRR, no murmur, no edema Chest (Breasts) Chest: normal inspection of chest (sternum tender to palpation) Gastrointestinal (Abdomen) normal bowel sounds, soft, nontender, no hepatosplenomegaly Musculoskeletal no cyanosis or clubbing, extremities motor strength 5/5 Skin no rashes, warm and dry Neurologic patellar DTR's 2+ bilat, sensation intact and PERRL, EOMI, accommodation nl, no face palsy, no dysarthria Psychiatric A+Ox3, euthymic affect Lymphatic no cervical or axillary lymphadenopathy Discharge Data Allergies Allergy/AdvReac Type Severity Reaction Status Date / Time No Known Drug Allergies Allergy Unknown none Verified 09/05/19 23:41 Consultations 09/06/19 01:08 ED Decision to Admit Stat 09/06/19 02:28 Consult Cardiology Routine Consult Case Management - Discharge Planning Routine Hospital Course (1) Substernal chest pain: pain is much improved today, down to 3 out of 10 worse with deep breath and cough, tender to palpation troponin negative x 3, echo normal CXR normal D dimer < 190 yesterday and on 08/16 so PE ruled out will treat costochondritis with Ibuprofen 400-600mg q8 PRN, with food appreciate consult from Dr. Rankin (2) Abnormal EKG: Initial EKG on 08/16/[address]-T changes in leads II, III and aVF. EKG today shows deepening T wave inversions in lead III, persistent ST-T changes and aVF, and improved lead II. subtle EKG changes but patient without concerning symptoms, normal echo (3) Tobacco use disorder: Patient smokes tobacco and marijuana products. Cessation counseling provided educated on dangers of fpc smoking (4) Hypokalemia: resolved Total Time Total Time Spent Total Time Spent (In Minutes): 32 minutes Total Time Includes: Examination of the Patient, Discharge Planning, Medication Reconciliation and Communication With Other Providers (Dr. Rankin) Discharge Plan Discharge Items Patient Disposition: Home - Self-Care Reason For Visit: CHEST PAIN, ABNORMAL EKG Discharge Diagnosis: Chest pain, atypical, most likely costochondritis Condition on Discharge: Good Goals: improve pain control quit smoking cigarettes and marijuana Activity: Resume your previous activity Non-emergency contact: Primary Care Provider Call non-emergency contact if: you have any medication questions, your symptoms worsen, your pain is not controlled and you have a fever Follow-up/Referrals: PCP,NO [Primary Care Provider] - Diet: Regular Addtl Attending Provider Instructions: Medications: - IBUPROFEN: take 400-600mg (2-3 tablets) every 8 hours as needed for pain, recommend taking with food as it can cause some GI upset Chest pain, atypical, reproducible no evidence that this is related to your heart, cardiac enzymes negative, echocardiogram normal EKG with subtle, non-specific changes D dimer < 190 both on 08/16 and on 09/05 which rules out any chance of blood clot Chest x-ray normal, no pneumonia, no fractures most logical explanation is some costochondritis from coughing treat with Ibuprofen 400-600mg every 8 hours as needed, again, make sure you take with food Tobacco and marijuana use strongly recommend that you quit the longer you smoke the more damage you do to your lungs, some of which is irreversible also, the marijuana is likely leading to your daily nausea you do not want to develop cannibis hyperemesis, which is cyclic vomiting related to marijuana use Dr. Rankin, cardiology, said that if you still have pain or if it is getting worse you can call his office to discuss getting a stress test, but it is not necessary at this time his office number is [phone] Pending Studies at Discharge: No Stand-Alone Forms: [employer] [facility] [employer], Smoking Cessation Medications and DC Order Prescriptions: New ibuprofen 600 mg tablet 600 mg PO Q8H PRN (Reason: pain) Qty: 60 RF: 0 No Action No Known Home Medications RF: 0 Discharge Orders: Discharge Order (Routine); Ordered 09/06/19 Ordered By: Luan Rios Admission Data Admit Date/Time: 09/06/19 02:04 Attending Provider: Luan Rios Admit Provider: Isai Underwood Primary Care Provider: PCP,NO Other Providers: Isai Underwood ; Kana Dela Cruz. Other Interventions: Discharge Summary Assessment (RN) Last Done: 09/06/19 11:32 DC Date/Time DO NOT enter until pt leaves facility: 09/06/19 12:42 Coding Level of Care Code D/C Day Management >30 mins Diagnoses Substernal chest pain R07.2 Abnormal EKG R94.31 Tobacco use disorder F17.200 Hypokalemia E87.6
== END 2019-09-06 12:42 | disposition home or self-care (01) | DRG 206 ==
LOC: ED 23:18 → SUATTDRO 09-06 02:04 → 2E 09-06 02:04